=== PATIENT | male | born 1975 | race African-American/Black ===

== ENCOUNTER 2017-04-14 21:16 | Emergency (ER) | payer MEDICAID ==
[~2017-04-14] VITALS: Ht 190.5 cm; Wt 108.9 kg
[~2017-04-14 21:16] MED LIST: CYCL10TA3 PO; IBUP800T24 PO; TRAM50TA2 PO
[2017-04-14] MEDS ORDERED: cloNIDine HCL 0.1 MG TAB PO ONE (21:30)
[2017-04-14 22:32] LABS: Albumin 4.2 g/dL (3.4-5.0); Alkaline Phosphatase 55 U/L (45-117); Anion Gap 6 (5-15); Aspartate Aminotransferase 18 U/L (15-37); BUN/Creatinine Ratio 8.2; Bilirubin, Total 0.3 mg/dL (0.2-1.0); Blood Urea Nitrogen 9 mg/dL (7-18); Calcium 8.8 mg/dL (8.5-10.1); Carbon Dioxide 29 mmol/L (21-32); Chloride 104 mmol/L (98-107); GFR African American 96 mL/min; GFR Non-African American 79 mL/min; Glucose 99 mg/dL (74-106); Magnesium 2.4 mg/dL (1.6-2.6); Potassium 4.1 mmol/L (3.5-5.1); Sodium 139 mmol/L (136-145); Total Protein 8.4 g/dL (6.4-8.2)
[2017-04-14 23:03] LABS: Basophils # (auto) 0 uL; Basophils % (auto) 0.7 % (0.0-2.0); Eosinophils # (auto) 0.3 uL; Eosinophils % (auto) 4.3 % (0.0-7.0); Hematocrit 48.5 % (41.0-53.0); Hemoglobin 15.8 g/dL (13.5-17.5); Lymphocytes # (auto) 2.4 uL; Mean Corpuscular Hemoglobin 27.5 pg (28.0-32.0); Mean Corpuscular Hgb Conc. 32.6 g/dL (32.0-36.0); Mean Corpuscular Volume 84.6 fL (80.0-100.0); Mean Platelet Volume 8.8 fL (6.9-10.8); Monocytes # (auto) 0.6 uL; Monocytes % (auto) 8.1 % (0.0-12.0); Neutrophils # (auto) 3.6 uL; Neutrophils % (auto) 51.9 % (37.0-80.0); Nucleated Red Blood Cells % 0.1 %; Platelet Count (auto) 282 10^3/uL (140-450); Red Cell Distribution Width 13.9 % (11.8-14.3); White Blood Cell 6.9 10^3/uL (4.4-10.8)
[2017-04-15 00:22] VITALS: BP 151/102
== END 2017-04-15 00:23 | disposition home or self-care (01) ==
LOC: ER 21:19
DX: I16.0 Hypertensive urgency (principal); I10 Essential (primary) hypertension; R07.9 Chest pain, unspecified
CPT/HCPCS: 36415; 71010; 80053; 82962; 83735; 84484; 85025; 93005

== ENCOUNTER 2017-12-28 07:33 | Emergency (ER) | payer MEDICAID ==
[~2017-12-28] VITALS: Ht 190.5 cm; Wt 112.9 kg
[2017-12-28] MEDS ORDERED: cloNIDine HCL 0.1 MG TAB ONE (07:43)
[2017-12-28] MEDS ORDERED: cloNIDine HCL 0.1 MG TAB PO ONE (07:45)
[2017-12-28 09:47] VITALS: BP 131/94
== END 2017-12-28 11:37 | disposition home or self-care (01) ==
LOC: ER 07:33
DX: S86.912A Strain of unspecified muscle(s) and tendon(s) at lower leg level, left leg, initial encounter (principal); I10 Essential (primary) hypertension; W20.8XXA Other cause of strike by thrown, projected or falling object, initial encounter; Y93.64 Activity, baseball; Y92.89 Other specified places as the place of occurrence of the external cause; Y99.8 Other external cause status
CPT/HCPCS: 73562

== ENCOUNTER 2019-01-24 23:39 | Emergency (ER) | payer MEDICAID ==
[~2019-01-24] VITALS: Ht 190.5 cm; Wt 114.3 kg
[2019-01-24] MEDS ORDERED: cloNIDine HCL 0.1 MG TAB ONE (23:51)
[2019-01-25] LABS: Basophils # (auto) 0 uL; Eosinophils # (auto) 0.1 uL; Lymphocytes # (auto) 1.8 uL; Monocytes # (auto) 0.3 uL; Neutrophils # (auto) 2.5 uL; Nucleated Red Blood Cells % 0.1 %
[2019-01-25] MEDS ORDERED: cloNIDine HCL 0.1 MG TAB PO ONE
[2019-01-25 00:02] LABS: Basophils % (auto) 0.9 % (0.0-2.0); Hematocrit 46.6 % (41.0-53.0); Hemoglobin 15.4 g/dL (13.5-17.5); Lymphocytes % (auto) 38.9 % (10.0-50.0); Mean Corpuscular Hemoglobin 27.4 pg (28.0-32.0); Mean Corpuscular Volume 83.1 fL (80.0-100.0); Monocytes % (auto) 5.9 % (0.0-12.0); Neutrophils % (auto) 52.3 % (37.0-80.0); Platelet Count (auto) 265 10^3/uL (140-450); Red Cell Distribution Width 13.4 % (11.8-14.3); White Blood Cell 4.8 10^3/uL (4.4-10.8)
[2019-01-25 00:18] LABS: Alanine Aminotransferase 59 U/L (16-61); Albumin 4.2 g/dL (3.4-5.0); Anion Gap 7 (5-15); Aspartate Aminotransferase 30 U/L (15-37); BUN/Creatinine Ratio 8.8; Blood Urea Nitrogen 10 mg/dL (7-18); Calcium 8.8 mg/dL (8.5-10.1); Carbon Dioxide 27 mmol/L (21-32); Chloride 108 mmol/L (98-107); GFR African American 92 mL/min; GFR Non-African American 76 mL/min; Glucose 109 mg/dL (74-106); Magnesium 2.1 mg/dL (1.6-2.6); Potassium 4.3 mmol/L (3.5-5.1); Sodium 142 mmol/L (136-145)
[2019-01-25 00:23] LABS: Alkaline Phosphatase 61 U/L (45-117); Bilirubin, Total 0.2 mg/dL (0.2-1.0); Total Protein 8.5 g/dL (6.4-8.2)
[2019-01-25 01:30] LABS: INR 0.96 (0.9-1.15); Partial Thromboplastin Time 29.5 sec (23.64-32.05)
[2019-01-25 01:59] LABS: Urine Bacteria NONE SEEN /hpf (None Seen); Urine Blood Negative /uL (Negative); Urine Specific Gravity 1.008 (1.001-1.035); Urine WBC <1 /hpf (0 - 3)
[2019-01-25 02:02] LABS: Alcohol, Urine < 3.0 mg/dL (0-5); Amphetamine Screen, Urine NEGATIVE (NEGATIVE); Barbiturate Scree,Urine NEGATIVE (NEGATIVE); Benzodiazephine Screen, Urine NEGATIVE (NEGATIVE); Cannabinoid Screen, Urine NEGATIVE (NEGATIVE); Cocaine Screen, Urine NEGATIVE (NEGATIVE); Opiate Scree,Urine NEGATIVE (NEGATIVE); Phencyclidine Screen, Urine NEGATIVE (NEGATIVE)
[2019-01-25 06:05] VITALS: BP 151/104
== END 2019-01-25 07:06 | disposition left against medical advice (07) ==
LOC: ER 23:42
DX: R07.9 Chest pain, unspecified (principal); I10 Essential (primary) hypertension; R51 Headache; R42 Dizziness and giddiness
CPT/HCPCS: 36415; 71045; 80053; 80307; 81001; 83735; 83880; 84443; 84484; 85025; 85610; 85730; 93005; 94761

== ENCOUNTER 2025-01-21 20:22 | Emergency (ER) | payer OTHER, MEDICAID ==
[~2025-01-21] VITALS: Ht 190.5 cm; Wt 119.0 kg
[~2025-01-21 20:22] MED LIST changes: +IBUP-1456 PO; -IBUP800T24 PO
[2025-01-21 20:25] VITALS: BP 221/130; PULSE 88; RESP 18; TEMP 98.7; O2SAT 100
--- NOTE | 2025-01-21 22:16 | DVH ---
EXAM: XY R HAND 3 VIEW XRAY REASON FOR EXAM: puncture wound/injury palm TECHNIQUE: PA, lateral, and oblique views of the right hand are submitted for review. COMPARISON: None FINDINGS: The bones demonstrate normal mineralization. There is no acute fracture or dislocation. The re is a ring on the 4th finger. There is no retained radiopaque foreign body in the hand. The soft ti ssues are grossly unremarkable. IMPRESSION: No evidence of retained radiopaque foreign body.
[2025-01-21] MEDS: LIDOCAINE 1% HCL (LOCAL ANESTH.) INJ 20ML MDV ID ONE (23:01)
--- NOTE | 2025-01-27 05:26 | ED.PDOC ---
HPI Comments PT CC LAC TO R PALM, PT STATED HE FELL BACK ATTMPTED TO CATCH HIMSELF, RIGH HAND WENT INTO A BACKET BEHIND HIM WITH A PICTURE FRAM IN IT CAUSING A LAC TO THE PALM. CC 11/12 PAIN Chief Complaint: Laceration Time Seen by MD: 20:33 Primary Care Provider: NONE Reviewed Notes: Nurses Notes, Medications, Allergies Allergies: Coded Allergies: NO KNOWN ALLERGIES (Unverified , 06/12/13) Home Meds Active Scripts Cyclobenzaprine Hcl (FLEXERIL) 10 Mg Tab, 10 MG PO TIDP PRN, #21 TAB Prov:RAMIRO FRIEDMAN N.P. 06/12/13 Ibuprofen (Ibuprofen) 800 Mg Tab, 800 MG PO QIDP PRN, #30 TAB Prov:RAMIRO FRIEDMAN N.P. 06/12/13 Tramadol Hcl (Tramadol Hcl) 50 Mg Tab, 50 MG PO Q6HP PRN, #30 TAB Prov:RAMIRO FRIEDMAN N.P. 06/12/13 Information Source: Patient Mode of Arrival: Ambulatory Complexity: Simple Laceration Length (cm): 2 Past Medical History PAST MEDICAL HISTORY: HTN Surgical History: Denies all surgeries Family History Family History: Unobtainable Social History Smoker: Non-Smoker Alcohol: Denies ETOH Use Drugs: Denies Drug Use Lives In: Home Constitutional: denies: chills, diaphoresis, fatigue, fever, malaise, sweats, weakness, others EENTM: denies: blurred vision, double vision, ear bleeding, ear discharge, ear drainage, ear pain, ear ringing, eye pain, eye redness, hearing loss, mouth pain, mouth swelling, nasal discharge, nose bleeding, nose congestion, nose pain, photophobia, tearing, throat pain, throat swelling, voice changes, others Respiratory: denies: cough, hemoptysis, orthopnea, SOB at rest, shortness of breath, SOB with excertion, stridor, wheezing, others Cardiovascular: denies: chest pain, dizzy spells, diaphoresis, Dyspnea on exertion, edema, irregular heart beat, left arm pain, lightheadedness, palpitations, PND, syncope, others Gastrointestinal: denies: abdomen distended, abdominal pain, blood streaked bowels, constipated, diarrhea, dysphagia, difficulty swallowing, hematemesis, melena, nausea, poor appetite, poor fluid intake, rectal bleeding, rectal pain, vomiting, others Genitourinary: denies: burning, dysuria, flank pain, frequency, hematuria, incontinence, penile discharge, penile sore, pain, testicle pain, testicle swelling, urgency, others Neurological: denies: dizziness, fainting, headache, left sided numbness, left sided weakness, numbness, paresthesia, pre-existing deficit, right sided numbness, right sided weakness, seizure, speech problems, tingling, tremors, weakness, others Musculoskeletal: denies: back pain, gout, joint pain, joint swelling, muscle pain, muscle stiffness, neck pain, others Integumetry: reports: laceration (Avulsion laceration right hand palm); denies: bruises, change in color, change in hair/nails, dryness, lesions, lumps, rash, wounds, others Allergic/Immunocompromised: denies: Difficulty Healing, Frequent Infections, Hives, Itching, others Hematologic/Lymphatic: denies: anemia, blood clots, easy bleeding, easy bruising, swollen glands, others Endocrine: denies: excessive hunger, excessive sweating, excessive thirst, excessive urination, flushing, intolerance to cold, intolerance to heat, unexplained weight gain, unexplained weight loss, others Psychiatric: denies: anxiety, bipolar disorder, depression, hopeless, panic disorder, schizophrenia, sleepless, suicidal, others Physical Exam General Appearance: No Apparent Distress, Normal HEENT: Pharynx Normal Neck: Full Range of Motion Respiratory: Lungs Clear, No Respiratory Distress, Normal Breath Sounds Cardiovascular: No Murmur, Normal Peripheral Pulses, Regular Rate/Rhythm Breast Exam: Deferred Gastrointestinal: Non Tender, Soft Genitalia: Deferred Pelvic: Deferred Rectal: Deferred Extremities: Normal range of motion, No pedal edema Musculoskeletal : Apperance: Normal Neurologic: Alert, No Motor Deficits, Normal Affect, Normal Mood, No Sensory Deficits Cerebellar Function: Normal Reflexes: Normal Skin: Dry, Lacerations (2 cm avulsion laceration right hand palm aspect bleeding controlled strength sensory motion intact no obvious foreign body), Normal Color, Warm Lymphatic: No Adenopathy Was a procedure done? Was a procedure done?: Yes Sedation Sedation?: No Informed consent obtained: Yes Laceration Repair : Location Right hand palm aspect Length 2 cm Anesthetic: Lidocaine, With epi Laceration Repair Prep: Saline, by Irrigation Laceration Repair Wound Comple: epidermis/dermis repair Laceration Repair: Number of sutures (4), Simple Informed consent obtained: Yes Risks, benefits, and alternati: Yes Notes Patient tolerated well with minimal blood loss Differential diagnosis Generic Laceration: Fracture, Retained Foriegn Body, Neurovascular Injury, Tendon Injury X-Ray, Labs, Meds, VS Vital Signs Date Time Temp Pulse Resp B/P (MAP) Pulse Ox O2 Delivery O2 Flow Rate FiO2 01/21/25 20:25 98.7 88 18 221/130 (160) 100 98.7 X-Ray, Labs, Meds, VS Comment See procedure note Right hand x-ray shows no acute fractures, dislocations, subluxations, or mentioned of foreign body. Advised patient to follow up in 5-7 days for suture removal. Follow up with your PCP for wound re-evaluation in two days. ER return precautions given patient indicates understanding and agrees with discharge plan of care. Time of 1ST Reevaluation: 20:33 Reevaluation 1ST: Unchanged Time of 2ND Reevaluation: 23:14 Reevaluation 2ND: Improved Patient Education/Counseling: Diagnosis, Treatment, Prognosis, Need For Follow Up Family Education/Counseling: Diagnosis, Treatment, Prognosis, Need For Follow Up Departure 1 Departure Time of Disposition: 23:14 Impression: Primary Impression: Laceration Disposition: 01 HOME / SELF CARE / HOMELESS Condition: Stable Additional Instructions: Discharge Note: Continue on your medications. Drink plenty of fluids. Follow up with your primary Dr. Take your prescriptions as ordered. If your condition becomes worse call and follow up with your primary Dr. for instructions or return to the ER if needed. Have the stitches/frantz removed in 7-10 days. Keep wound clean and dry. Have a wound check in 2 days. Thank you for visiting [facility]. Discharged With: Spouse Critical Care Note Critical Care Time?: No Stability Stability form required: YARED Tafoya Jan 27, 2025 05:26
== END 2025-01-21 23:14 | disposition home or self-care (01) ==
LOC: ER 20:22
DX: S61.411A Laceration without foreign body of right hand, initial encounter (principal); W19.XXXA Unspecified fall, initial encounter; Y93.89 Activity, other specified; Y92.89 Other specified places as the place of occurrence of the external cause; Y99.8 Other external cause status; I10 Essential (primary) hypertension
CPT/HCPCS: 12001; 73130